=== PATIENT | female | born 1955 | race Caucasian/White ===

== ENCOUNTER → 2021-01-15 | Outpatient (CLI) | payer MEDICARE, OTHER ==
[~2021-01-15] MED LIST: ALIGN4 MG PO; ARAVA20 MG PO; ARIMIDEX1 MG PO; CALCIUM ACETAT667 M1 PO; CELEXA40 MG PO; ELIQUIS2.5 MG PO; FEOSOL325 MG PO; FOLIC ACID0.4 MG PO; LIPITOR40 MG PO; LYRICA75 MG PO; MAG-OX 400 TAB400 MG PO; OMEGA 3 1,0001 EACH PO; OXYCODON-ACETA1 EAC1 PO; OXYCODONE HCL10 MG PO; PERCOCET 10-321 EACH PO; PRILOSEC20 MG PO; ROCEPHIN 22 G/50 ML INJ; SODIUM BICARBO650 MG PO; TRAZODONE HCL100 MG PO; VITAMIN D 11000 UNIT PO; VITAMIN D21250 MCG PO; XELJANZ5 MG PO
== END ==
LOC: EXRD 12-11 11:30
DX: Z78.0 Asymptomatic menopausal state (principal); M81.0 Age-related osteoporosis without current pathological fracture
CPT/HCPCS: 77080

== ENCOUNTER 2021-06-19 14:31 | Emergency (ER) | payer OTHER | END 2021-06-19 20:35 | disposition home or self-care (01) | LOC: ER1 14:31 | DX: S32.018A Other fracture of first lumbar vertebra, initial encounter for closed fracture (principal); V49.9XXA Car occupant (driver) (passenger) injured in unspecified traffic accident, initial encounter | CPT/HCPCS: 70450; 71045; 72100; 72125; 72128; 72131; 72170; 99284 ==

== ENCOUNTER → 2022-01-15 | Outpatient (CLI) | payer MEDICARE, OTHER ==
[2022-01-17 09:18] LABS: CREATININE, URINE 28.2 mg/dL (Not Estab.)
== END ==
LOC: LAB 16:04 → LBRF 16:04
PROVIDERS: Internal Medicine Nephrology
DX: N18.32 Chronic kidney disease, stage 3b (principal)
CPT/HCPCS: 36415; 80053; 81001; 82043; 82570

== ENCOUNTER → 2022-02-12 | Outpatient (CLI) | payer MEDICARE, OTHER | LOC: KOH-I 11:00 | DX: M51.16 Intervertebral disc disorders with radiculopathy, lumbar region (principal); M51.17 Intervertebral disc disorders with radiculopathy, lumbosacral region | CPT/HCPCS: 72148 ==